=== PATIENT | female | born 1980 | race Caucasian/White ===

== ENCOUNTER 2018-12-04 08:18 | Emergency (ER) | payer MEDICAID, OTHER ==
[~2018-12-04] VITALS: Ht 160 cm; Wt 90.7 kg
--- OUTSIDE RECORDS SUMMARY | 2018-12-04 08:24 | XMS REPORT ---
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 32313801 Problem Body mass index (BMI) of 33.0-33.9 in adult Z68.33 Active 122231043 ALLERGIES No Known Allergies ENCOUNTERS Encounter Location Date Diagnosis [facility] [address] [place] [address] November, 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 ; Other obesity due to excess calories E66.09 and Body mass index (BMI) of 33.0-33.9 in adult Z68.33 [facility] [address] [place] [address] November, Upper respiratory infection with cough and congestion J06.9 IMMUNIZATIONS No Known Immunizations SOCIAL HISTORY Never Assessed REASON FOR VISIT Establish Care-KARINA Velarde PLAN OF CARE Activity Details Follow Up 6 Months, prn Reason:CHM/Thyroid VITAL SIGNS Height 63 in 2017-12-09 Weight 190.7 lbs 2017-12-09 Temperature 98.4 degrees Fahrenheit 2017-12-09 Heart Rate 88 bpm 2017-12-09 Respiratory Rate 20 2017-12-09 BMI 33.78 kg/m2 2017-12-09 Blood pressure systolic 118 mmHg 2017-12-09 Blood pressure diastolic 72 mmHg 2017-12-09 MEDICATIONS Medication Instructions Dosage Frequency Start Date End Date Duration Status Gayla Allergy 180 MG Orally Once a day 1 tablet as needed 24h Not-Taking Levothyroxine Sodium 200 MCG Orally Once a day 1 tablet on an empty stomach in the morning 24h 90 days Active RESULTS No Results PROCEDURES No Known procedures INSTRUCTIONS MEDICATIONS ADMINISTERED No Known Medications MEDICAL (GENERAL) HISTORY Type Description Date Medical History Hashimotos Surgical History surgery to remove endometromas- done in [place] 2012
--- OUTSIDE RECORDS SUMMARY | 2018-12-04 08:24 | XMS REPORT ---
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 22603072 Problem Body mass index (BMI) of 33.0-33.9 in adult Z68.33 Active 144579772 Problem Other obesity due to excess calories E66.09 Active 365406500 ALLERGIES No Information ENCOUNTERS Encounter Location Date Diagnosis [facility] [address] [address] Mar, [facility] [address] [address] Mar, 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 and Positive urine test Z32.01 [facility] [address] [address] Mar, [facility] [id number] [place] [address] Mar, [facility] [id number] [place] [address] Mar, [facility] [address] [address] 18 Mar, 2018 Missed period N92.6 ; 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 ; Body mass index (BMI) of 33.0-33.9 in adult Z68.33 ; Nausea alone R11.0 and Positive urine test Z32.01 [facility] [address] [address] Feb, 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 [place] [address] [address] [address] [facility] [id number] [address] November, 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 ; Other obesity due to excess calories E66.09 and Body mass index (BMI) of 33.0-33.9 in adult Z68.33 [place] [address] [address] [facility] [id number], [place] [address] November, Upper respiratory infection with cough and congestion J06.9 IMMUNIZATIONS No Known Immunizations SOCIAL HISTORY Never Assessed REASON FOR VISIT PLAN OF CARE VITAL SIGNS MEDICATIONS Unknown Medications RESULTS No Results PROCEDURES No Known procedures INSTRUCTIONS MEDICATIONS ADMINISTERED No Known Medications MEDICAL (GENERAL) HISTORY Type Description Date Medical History Hashimotos Surgical History surgery to remove endometromas- done in [place] 2012
--- OUTSIDE RECORDS SUMMARY | 2018-12-04 08:24 | XMS REPORT ---
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 20676396 Problem Body mass index (BMI) of 33.0-33.9 in adult Z68.33 Active 879554754 Problem Other obesity due to excess calories E66.09 Active 730899443 ALLERGIES No Known Allergies ENCOUNTERS Encounter Location Date Diagnosis [facility] [id number] [place] [address] Mar, [facility] [address] [address] Mar, 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 and Positive urine test Z32.01 [facility] [id number] [place] [address] Mar, [facility] [id number] [place] [address] Mar, [facility] [id number] [place] [address] Mar, [facility] [address] [address] 18 Mar, 2018 Missed period N92.6 ; 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 ; Body mass index (BMI) of 33.0-33.9 in adult Z68.33 ; Nausea alone R11.0 and Positive urine test Z32.01 [facility] [address] [place] [address] Feb, 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 [facility] [id number] [address] November, 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 ; Other obesity due to excess calories E66.09 and Body mass index (BMI) of 33.0-33.9 in adult Z68.33 [place] [address] [address] [place] [id number], [place] [address] November, Upper respiratory infection with cough and congestion J06.9 IMMUNIZATIONS No Known Immunizations SOCIAL HISTORY Never Assessed REASON FOR VISIT F/U Pt in for F/U, has been nauseous, she has also has pressure around thyroid and is concerned about that KARINA Lewis PLAN OF CARE Activity Details Follow Up 3 Months, prn Reason:CHM/Thyroid w/ Ann Marie Pending Test Ultrasound : Thyroid VITAL SIGNS Height 63 in 2018-03-31 Weight 188.1 lbs 2018-03-31 Temperature 98.1 degrees Fahrenheit 2018-03-31 Heart Rate 76 bpm 2018-03-31 Respiratory Rate 18 2018-03-31 BMI 33.32 kg/m2 2018-03-31 Blood pressure systolic 108 mmHg 2018-03-31 Blood pressure diastolic 72 mmHg 2018-03-31 MEDICATIONS Medication Instructions Dosage Frequency Start Date End Date Duration Status Plus 27-1 MG Orally Once a day 1 tablet 24h Mar, 30 day(s) Active B6 Natural 100 mg Orally Once a day 1 tablet 24h Mar, Apr, 30 day(s) Active Folic Acid 1 mg Orally Once a day 1 tablet 24h Mar, Apr, 30 day(s) Active Levothyroxine Sodium 200 MCG Orally Once a day 1 tablet on an empty stomach in the morning 24h 90 days Active Gayla Allergy 180 MG Orally Once a day 1 tablet as needed 24h Active Complete 14-0.4 mg Orally Once a day 1 tablet 24h Mar, 30 day(s) Active RESULTS No Results PROCEDURES Procedure Date Ordered Result Body Site URINE TEST Mar 31, 2018 URINALYSIS, AUTO, W/O SCOPE Mar 31, 2018 VENIPUNCT, ROUTINE* Mar 31, 2018 CHORIONIC GONADOTROPIN TEST Mar 31, 2018 LIPID PANEL Mar 31, 2018 ASSAY THYROID STIM HORMONE Mar 31, 2018 COMPREHEN METABOLIC PANEL Mar 31, 2018 COMPLETE CBC W/AUTO DIFF WBC Mar 31, 2018 INSTRUCTIONS MEDICATIONS ADMINISTERED No Known Medications MEDICAL (GENERAL) HISTORY Type Description Date Medical History Hashimotos Surgical History surgery to remove endometromas- done in [place] 2012
--- OUTSIDE RECORDS SUMMARY | 2018-12-04 08:24 | XMS REPORT ---
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 20440146 Problem Body mass index (BMI) of 33.0-33.9 in adult Z68.33 Active 123421996 Problem Other obesity due to excess calories E66.09 Active 744592341 ALLERGIES No Information ENCOUNTERS Encounter Location Date Diagnosis [facility] [id number] [place] [address] 25 Mar, 2018 [facility] [id number] [place] [address] Mar, 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 and Positive urine test Z32.01 [facility] [id number] [place] [address] Mar, [facility] [id number] [place] [address] Mar, [facility] [id number] [place] [address] 18 Mar, 2018 [facility] [id number] [place] [address] 18 Mar, 2018 Missed period N92.6 ; 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 ; Body mass index (BMI) of 33.0-33.9 in adult Z68.33 ; Nausea alone R11.0 and Positive urine test Z32.01 [facility] [id number] [place] [address] Feb, 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 [facility] [address] [facility] [id number] [address] November, 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 ; Other obesity due to excess calories E66.09 and Body mass index (BMI) of 33.0-33.9 in adult Z68.33 [place] [address] [address] [facility] [id number] [address] November, Upper respiratory infection with cough and congestion J06.9 IMMUNIZATIONS No Known Immunizations SOCIAL HISTORY Never Assessed REASON FOR VISIT LVM PLAN OF CARE VITAL SIGNS MEDICATIONS Medication Instructions Dosage Frequency Start Date End Date Duration Status Levothyroxine Sodium 200 MCG Orally Once a day 1 tablet on an empty stomach in the morning 24h 90 days Active RESULTS No Results PROCEDURES No Known procedures INSTRUCTIONS MEDICATIONS ADMINISTERED No Known Medications MEDICAL (GENERAL) HISTORY Type Description Date Medical History Hashimotos Surgical History surgery to remove endometromas- done in [place] 2012
--- OUTSIDE RECORDS SUMMARY | 2018-12-04 08:24 | XMS REPORT ---
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 32596837 Problem Body mass index (BMI) of 33.0-33.9 in adult Z68.33 Active 861096074 Problem Other obesity due to excess calories E66.09 Active 316504988 ALLERGIES No Information ENCOUNTERS Encounter Location Date Diagnosis [facility] [address] [address] Mar, [facility] [address] [address] Mar, 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 and Positive urine test Z32.01 [facility] [address] [address] Mar, [facility] [id number] [place] [address] Mar, [facility] [id number] [place] [address] Mar, [facility] [address] [address] 18 Mar, 2018 Missed period N92.6 ; 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 ; Body mass index (BMI) of 33.0-33.9 in adult Z68.33 ; Nausea alone R11.0 and Positive urine test Z32.01 [facility] [address] [address] Feb, 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 [place] [address] [address] [facility] [id number], [place] [address] November, 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 ; Other obesity due to excess calories E66.09 and Body mass index (BMI) of 33.0-33.9 in adult Z68.33 [place] [address] [address] [facility] [id number], [place] [address] November, Upper respiratory infection with cough and congestion J06.9 IMMUNIZATIONS No Known Immunizations SOCIAL HISTORY Never Assessed REASON FOR VISIT med/lab order PLAN OF CARE VITAL SIGNS MEDICATIONS Medication Instructions Dosage Frequency Start Date End Date Duration Status Synthroid 175 MCG Orally Once a day 1 tablet on an empty stomach in the morning 24h Mar, 90 days Active RESULTS No Results PROCEDURES No Known procedures INSTRUCTIONS MEDICATIONS ADMINISTERED No Known Medications MEDICAL (GENERAL) HISTORY Type Description Date Medical History Haiderimotos Surgical History surgery to remove endometromas- done in [place] 2012
--- OUTSIDE RECORDS SUMMARY | 2018-12-04 08:24 | XMS REPORT ---
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 91710345 Problem Body mass index (BMI) of 33.0-33.9 in adult Z68.33 Active 225812725 Problem Other obesity due to excess calories E66.09 Active 909112224 ALLERGIES No Information ENCOUNTERS Encounter Location Date Diagnosis [facility] [address] [address] Mar, [facility] [address] [address] Mar, 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 and Positive urine test Z32.01 [facility] [address] [address] Mar, [facility] [id number] [place] [address] Mar, [facility] [id number] [place] [address] Mar, [facility] [address] [address] 18 Mar, 2018 Missed period N92.6 ; 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 [id number], [place] [address] November, Upper respiratory infection with cough and congestion J06.9 IMMUNIZATIONS No Known Immunizations SOCIAL HISTORY Never Assessed REASON FOR VISIT eye exam PLAN OF CARE VITAL SIGNS MEDICATIONS Unknown Medications RESULTS No Results PROCEDURES No Known procedures INSTRUCTIONS MEDICATIONS ADMINISTERED No Known Medications MEDICAL (GENERAL) HISTORY Type Description Date Medical History Hashimotos Surgical History surgery to remove endometromas- done in [place] 2012
--- OUTSIDE RECORDS SUMMARY | 2018-12-04 08:25 | XMS REPORT ---
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 65963118 Problem Body mass index (BMI) of 33.0-33.9 in adult Z68.33 Active 156879285 ALLERGIES No Known Allergies ENCOUNTERS Encounter Location Date Diagnosis [facility] [place] [address] [place] [address] November, 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 ; Other obesity due to excess calories E66.09 and Body mass index (BMI) of 33.0-33.9 in adult Z68.33 [facility] [place] [address] [place] [address] November, Upper respiratory infection with cough and congestion J06.9 IMMUNIZATIONS Vaccine Route Administration Date Status SOLUMEDROL (UP TO 125 MG) IM Intramuscular November 12, 2017 Administered SOCIAL HISTORY Never Assessed REASON FOR VISIT Sore throat, cough, congestion x8 days, denies fever----Cristino, reports taylor luz synthroid 200mcg daily, fills at [facility] PLAN OF CARE Activity Details Follow Up 1 Week, prn Reason:if symptoms worsen or not improving VITAL SIGNS Height 63 in 2017-11-12 Weight 198 lbs 2017-11-12 Temperature 98.9 degrees Fahrenheit 2017-11-12 Heart Rate 90 bpm 2017-11-12 Respiratory Rate 20 2017-11-12 BMI 35.07 kg/m2 2017-11-12 Blood pressure systolic 120 mmHg 2017-11-12 Blood pressure diastolic 68 mmHg 2017-11-12 MEDICATIONS Medication Instructions Dosage Frequency Start Date End Date Duration Status Flonase 50 MCG/ACT Nasally twice a day 1 spray in each nostril 12h November, 30 day(s) Active Mucinex 600 MG Orally every 12 hrs 1 tablet as needed 12h November, Dec, 30 days Active Zyrtec Allergy 10 mg Orally Once a day 1 capsule 24h November, Feb, 30 day(s) Active Azithromycin 250 MG Orally Once a day 2 tablets on the first day, then 1 tablet daily for 4 days 24h November, November, 5 day(s) Active RESULTS Name Result Date Reference Range STREP A (IN HOUSE) 2017-11-12 STREP A negative Control + Lot # [id number] Exp date 04/12/18 PROCEDURES Procedure Date Ordered Result Body Site STREP A ASSAY W/OPTIC November 12, 2017 INSTRUCTIONS MEDICATIONS ADMINISTERED No Known Medications MEDICAL (GENERAL) HISTORY Type Description Date Medical History Hashimotos Surgical History surgery to remove endometromas- done in [place] 2012
--- NOTE | 2018-12-04 09:01 | Diagnostic Imaging Report ---
PATIENT HISTORY: Fall, right elbow injury. TECHNIQUE: 3 views of the right elbow COMPARISON: None FINDINGS: There is a moderate to large right elbow joint effusion, concerning for underlying fracture. There is slight cortical irregularity at the lateral aspect of the right radial neck, could represent a nondisplaced fracture. Alignment otherwise appears normal. Joint spaces are preserved. IMPRESSION: Cortical irregularity at the lateral aspect of the right radial neck concerning for a nondisplaced fracture, particularly given the presence of a joint effusion. Dictated by: Dictated on workstation # [id number]
--- NOTE | 2018-12-04 09:08 | ED Upper Extremity ---
General Chief Complaint: Upper Extremity Stated Complaint: RT ELBOW INJ Nursing Triage Note: Fell last night and landed on R elbow. Is having pain rated at 4/10 that is worse with movement. Took naproxyn for pain last night. Nursing Sepsis Screen: No Definite Risk Source: patient Exam Limitations: no limitations History of Present Illness Date Seen by Provider: December 04, 2018 Time Seen by Provider: 08:30 Initial Comments Patient is a 38-year-old right-handed female Allergies and Home Medications Allergies Coded Allergies: No Known Drug Allergies (Unverified , 12/04/18) Patient Home Medication List Home Medication List Reviewed: Yes Review of Systems Constitutional: no symptoms reported Past Bprmqmm-Eoguvi-Gkcvek Hx Patient Social History Alcohol Use: Denies Use Recreational Drug Use: No Smoking Status: Never a Smoker 2nd Hand Smoke Exposure: Yes Recent Foreign Travel: No Contact w/Someone Who Travel: No Recent Infectious Disease Expo: No Recent Hopitalizations: No Physical Abuse: No Sexual Abuse: No Mistreated: No Fear: No Seasonal Allergies Seasonal Allergies: No Past Medical History Surgeries: Yes (scope, ovarian cyst drainage) Respiratory: No Cardiac: No Neurological: No Genitourinary: No Gastrointestinal: No Musculoskeletal: No Endocrine: Yes (Taryn's) Hypothyroidsim Cancer: No Psychosocial: No Integumentary: No Physical Exam Vital Signs Vital Signs - First Documented 12/04/18 08:24 Temp 98.3 Pulse 87 Resp 16 B/P (MAP) 112/60 (77) Pulse Ox 98 Capillary Refill : Less Than 3 Seconds Height, Weight, BMI Height: 5'3.00" Weight: 200lbs. oz. 90.722649ge; BMI Method:Stated General Appearance: no apparent distress HEENT: normal ENT inspection Shoulder: normal inspection, non-tender Elbow/Forearm: Right, bone tenderness, limited ROM, pain, soft tissue tenderness, swelling Wrist: Yes normal inspection, Yes non-tender Hand: normal inspection, non-tender Neurologic/Psychiatric: no motor/sensory deficits Progress/Results/Core Measures Results/Orders My Orders Orders - CATE BRUNO DO Elbow 3 View Right (12/04/18 08:36) Nursing Communication (Order) (12/04/18 08:57) Vital Signs/I&O 12/04/18 08:24 Temp 98.3 Pulse 87 Resp 16 B/P (MAP) 112/60 (77) Pulse Ox 98 Blood Pressure Mean: 77 Departure Communication (Admissions) Right elbow x-ray: Posterior fatpad with cortical abnormality. Isolated elbow injury. Patient placed in splint and sling. Will refer to orthopedic surgeon on-call Impression Primary Impression: Elbow fracture, right Disposition: 01 HOME, SELF-CARE Condition: Improved Departure-Patient Inst. Referrals: NO,LOCAL PHYSICIAN (PCP) Primary Care Physician Patient Instructions: Elbow Fracture (DC) Add. Discharge Instructions: Please wear sling and splint and avoid right arm use. Contact on-call orthopedic surgeon and schedule appointment next week. Take ibuprofen or naproxen as needed for pain. All discharge instructions reviewed with patient and/or family. Voiced understanding. CATE BRUNO DO December 04, 2018 09:08
[2018-12-04 10:16] VITALS: BP 112/58
== END 2018-12-04 10:19 | disposition home or self-care (01) ==
LOC: EDUNIT# 08:18 → ER FS 08:21
DX: S52.134A Nondisplaced fracture of neck of right radius, initial encounter for closed fracture (principal); E03.9 Hypothyroidism, unspecified; E06.3 Autoimmune thyroiditis; Z77.22 Contact with and (suspected) exposure to environmental tobacco smoke (acute) (chronic); W19.XXXA Unspecified fall, initial encounter
CPT/HCPCS: 29105; 73080

== ENCOUNTER → 2018-12-21 | Outpatient (CLI) | payer MEDICAID ==
--- NOTE | 2018-12-21 09:56 | Diagnostic Imaging Report ---
Right elbow at 909 hours. INDICATION: Elbow pain. 3 views were obtained. FINDINGS: The prior exam of 12/04/2018 suggest a nondisplaced fracture involving the radial neck. In the interval since the prior study, a thin band of increased density has developed about the radial neck. This does suggest a healing response to a nondisplaced fracture. No other fracture or acute bony abnormality is appreciated. The posterior fat-pad of the elbow joint is not as conspicuous as on the prior exam and I suspect that the joint effusion associated with the acute fracture noted previously has diminished or resolved. IMPRESSION: There is a healing nondisplaced fracture of the radial neck. There is no acute bony abnormality noted otherwise. Dictated by: Dictated on workstation # [id number]
== END ==
LOC: RAD FS 08:58
PROVIDERS: ATTEND Nurse Practitioner
DX: S52.134D Nondisplaced fracture of neck of right radius, subsequent encounter for closed fracture with routine healing (principal)
CPT/HCPCS: 73080